=== PATIENT | female | born 1980 | race Caucasian/White ===

== ENCOUNTER 2020-06-03 21:59 | Emergency (ER) | payer OTHER ==
--- NOTE | 2020-06-03 23:03 | EDM.PDOC ---
ED HPI GENERAL MEDICAL PROBLEM - General Chief Complaint: Genitourinary Problem Stated Complaint: POSSIBLE UTI Time Seen by Provider: 06/03/20 22:10 Source of Information: Reports: Patient History Limitations: Reports: No Limitations - History of Present Illness INITIAL COMMENTS - FREE TEXT/NARRATIVE: Christina is a 40-year-old female presenting to the ED with acute onset of freq uency, urgency, and burning with urination. Her symptoms started yesterday but of continue to worsen through the day. She does have a history for urinary tract infections as well as being currently evaluated and treated for chronic ongoing group B strep vaginitis. She is currently camping here from [place]. She denies any fever, chills, nausea or vomiting, diarrhea or constipation. - Related Data Allergies Allergy/AdvReac Type Severity Reaction Status Date / Time No Known Allergies Allergy Verified 06/03/20 22:33 Home Meds: Home Meds Amitriptyline [Elavil] 25 - 50 mg PO BEDTIME 06/03/20 [History] Fluconazole [Diflucan] 150 mg PO ONETIME #1 tab 06/03/20 [Rx] Past Medical History - Past Health History Medical/Surgical History: Denies Medical/Surgical History Genitourinary History: Reports: UTI, Recurrent CHEMICAL EDUCATOR History: Reports: Other (See Below) Other CHEMICAL EDUCATOR History: recurrent strep B vaginitiis - Infectious Disease History Infectious Disease History: Reports: Chicken Pox Social & Family History - Family History Family Medical History: No Pertinent Family History - Tobacco Use Tobacco Use Status *Q: Never Tobacco User - Caffeine Use Caffeine Use: Reports: Coffee - Recreational Drug Use Recreational Drug Use: No ED ROS GENERAL - Review of Systems Review Of Systems: See Below Constitutional: Reports: No Symptoms HEENT: Reports: No Symptoms Respiratory: Reports: No Symptoms Cardiovascular: Reports: No Symptoms Endocrine: Reports: No Symptoms GI/Abdominal: Reports: No Symptoms : Reports: Dysuria, Frequency, Urgency. Denies: Flank Pain Musculoskeletal: Reports: No Symptoms Skin: Reports: No Symptoms Neurological: Reports: No Symptoms Psychiatric: Reports: No Symptoms Hematologic/Lymphatic: Reports: No Symptoms Immunologic: Reports: No Symptoms ED EXAM, RENAL/ - Physical Exam Exam: See Below Exam Limited By: No Limitations General Appearance: Alert, No Apparent Distress Respiratory/Chest: No Respiratory Distress, Lungs Clear, Normal Breath Sounds Cardiovascular: Normal Peripheral Pulses, Regular Rate, Rhythm, No Murmur GI/Abdominal: Normal Bowel Sounds, Soft, Non-Tender Back Exam: Normal Inspection, Full Range of Motion. No: CVA Tenderness (R), CVA Tenderness (L) Neurological: Alert, Oriented, Normal Cognition, No Motor/Sensory Deficits Psychiatric: Normal Affect, Normal Mood Skin Exam: Warm, Dry, Intact, Normal Color Course - Vital Signs Last Recorded V/S: Last Vital Signs Temp 36.3 C 06/03/20 22:37 Pulse 82 06/03/20 22:37 Resp 16 06/03/20 22:37 BP 118/74 06/03/20 22:37 Pulse Ox 100 06/03/20 22:37 - Orders/Labs/Meds Orders: Active Orders 24 hr Category Date Time Status CULTURE URINE [RM] Stat Lab 06/03/20 22:47 Ordered Labs: Laboratory Tests 06/03/20 Range/Units 22:20 Urine Color Yellow (YELLOW) Urine Appearance Cloudy A (CLEAR) Urine pH 7.0 (5.0-8.0) Ur Specific [place] >= 1.030 (1.008-1.030) Urine Protein 30 H (NEGATIVE) mg/dL Urine Glucose (UA) Negative (NEGATIVE) mg/dL Urine Ketones Negative (NEGATIVE) mg/dL Urine Occult Blood Moderate H (NEGATIVE) Urine Nitrite Negative (NEGATIVE) Urine Bilirubin Negative (NEGATIVE) Urine Urobilinogen 0.2 (0.2-1.0) EU/dL Ur Leukocyte Esterase Moderate H (NEGATIVE) Urine RBC 0-5 (0-5) Urine WBC 10-20 H (0-5) Ur Epithelial Cells Rare Amorphous Sediment Not seen Urine Bacteria Few Urine Mucus Not seen - Re-Assessments/Exams Free Text/Narrative Re-Assessment/Exam: 06/03/20 23:06 I reviewed the patient's labs showing a significant urinary tract infection. We will start her on cephalexin 500 mg twice daily for 10 days. Urine culture is also been ordered. She requested a single dose of Diflucan to be taken in the last day of antibiotics for vaginal candidiasis. Departure - Departure Time of Disposition: 23:01 Disposition: Home, Self-Care 01 Clinical Impression: UTI, Urinary tract infectious disease - Discharge Information Prescriptions: Fluconazole [Diflucan] 150 mg PO ONETIME #1 tab Instructions: Urinary Tract Infection, Adult Referrals: PCP,None [Primary Care Provider] - Forms: ED Department Discharge Care Plan Goals: I am starting you on an antibiotic called cephalexin. You will take 1 tablet twice daily for 10 days. A urine culture is also been ordered so if it is growing an organism that is resistant to this antibiotic you will be notified. I have also provided you with a prescription for Diflucan 1 tablet to be taken on the last day of antibiotics to prevent any vaginal yeast infection due to the antibiotic. Make sure to drink plenty of fluids to keep urine flowing. Turn to the ED should you develop high fever or developing back pain as this may be signs of a kidney infection. Sepsis Event Note (ED) - Evaluation Sepsis Screening Result: No Definite Risk - Focused Exam Vital Signs: Vital Signs Temp Pulse Resp BP Pulse Ox 06/03/20 22:37 36.3 C 82 16 118/74 100 06/03/20 22:20 36.3 C 82 16 118/74 100 - Problem List & Annotations (1) UTI, Urinary tract infectious disease SNOMED Code(s): 38794117 Code(s): N39.0 - URINARY TRACT INFECTION, SITE NOT SPECIFIED Status: Acute Priority: Low Current Visit: Yes - Problem List Review Problem List Initiated/Reviewed/Updated: Yes - My Orders Last 24 Hours: My Active Orders 06/03/20 22:47 CULTURE URINE [RM] Stat - Assessment/Plan Last 24 Hours: My Active Orders 06/03/20 22:47 CULTURE URINE [RM] Stat
== END 2020-06-03 23:19 | disposition home or self-care (01) ==
LOC: JP.ED 21:59
DX: N39.0 Urinary tract infection, site not specified (principal); Z79.899 Other long term (current) drug therapy
CPT/HCPCS: 81001; 87086; 87088; 87186; 99283